=== PATIENT | female | born 1965 | race African-American/Black ===

== ENCOUNTER 2016-09-14 21:21 | Emergency (ER) | payer BC ==
[~2016-09-14] VITALS: Ht 154.9 cm; Wt 121.1 kg
[~2016-09-14 21:21] MED LIST: AMLODIPINE BESYL5 MG PO; AMOXIL125 MG/5 M; ASPIRIN81 M1 PO; BACTRIM DS TABL1 TA1 PO; BIOTIN5 MG PO; CALCIUM + D 6001 TA1 PO; CIPRO PO; COREG PO; DIOVAN PO; KCL PO; KEFLEX500 M2 PO; LASIX PO; LEVETIRACETAM500 MG PO; LEVOTHROID100 MC1 PO; LEVOTHROID88 MCG PO; LEVOTHYROXINE88 MCG PO; MACROBID 100 M100 MG PO; NORVASC PO; PHENERGAN PO; PHENERGAN25 MG PO; PREDNISONE50 MG PO; PYRIDIUM PO; SYNTHROID PO; TYLENOL #3 PO; VICODIN 5/500 T1 TAB PO
[2016-09-14] MEDS ORDERED: FORTAMET500 MG (21:29)
== END 2016-09-15 00:13 | disposition home or self-care (01) ==
LOC: SED 21:21
DX: R07.89 Other chest pain (principal); I10 Essential (primary) hypertension; Z79.899 Other long term (current) drug therapy
CPT/HCPCS: 96372; 99283; J1885